=== PATIENT | male | born 1935 | race Caucasian/White ===

== ENCOUNTER 2017-02-20 20:10 | Emergency (ER) | payer MEDICARE ==
[2017-02-20] MEDS ORDERED: Sodium Chloride 0.9% 1000 ML 1,000 ML ONE ×2 (20:41→22:34)
--- NOTE | 2017-02-20 20:44 | ERPHSYRPT ---
- History of Present Illness Time Seen by Provider: 02/20/17 20:39 Source: patient Physician History: This is a 82-year-old white male with history of cataracts, coronary artery disease, hyperlipidemia, high blood pressure, colorectal cancer. Patient arrives with complaint of feeling weak states he feels like he wants to follow better when he stands up symptoms since yesterday worse today which has been going on all day long. Patient states he is chronically weak in his legs however it is worse today he states he is vomited one time today no fevers he denies any chest pain shortness of breath abdominal pain. Past medical history includes cataracts, coronary artery disease, hyperlipidemia , high blood pressure, arthritis, colorectal cancer, anxiety, bladder polyps, left fibular fracture, gout, Past surgical history includes colon resection, CABG, aortic valve replacement, joint replacement, Timing/Duration: yesterday (symptoms since yesterday worse toda) Severity: moderate Modifying Factors: Improves With: nothing Associated Symptoms: nausea, vomiting (vomited time 1), malaise, weakness, No abdominal pain, No shortness of breath, No heartburn, No diaphoresis, No cough, No chills, No chest pain, No fever, No headaches, No loss of appetite, No rash, No syncope, No seizure Allergies/Adverse Reactions: No Known Drug Allergies Allergy (Verified 02/20/17 20:44) Home Medications: Allopurinol 100 mg [Zyloprim 100 mg] 100 mg PO DAILY 11/13/14 [History] Fluoxetine HCl [Prozac] 20 mg PO DAILY 11/13/14 [History] Metoprolol Succinate 50 mg [Toprol Xl 50 MG] 50 mg PO DAILY 11/13/14 [ History] Simvastatin [Zocor] 10 mg PO HS 11/13/14 [History] Melatonin 9 mg DAILY 03/03/15 [History] Pantoprazole Sodium [Protonix] 40 mg DAILY 03/03/15 [History] Trazodone HCl 50 mg [Desyrel 50 mg] 25 mg HS 03/03/15 [History] Inulin/Chromium Picolinate [Fiber Gummies] 3 each PO BID 04/20/15 [History] Loperamide HCl [Loperamide] 2 mg PO DAILY 04/20/15 [History] Sodium Chloride [Saline Nasal Mist] 2 drops QID 04/20/15 [History] Warfarin Sodium [Coumadin] 6 mg PO DAILY 04/20/15 [History] Alfuzosin HCl [Alfuzosin HCl ER] 10 mg PO DAILY 02/20/17 [History] Furosemide [Lasix] 20 mg PO DAILY 02/20/17 [History] Gabapentin 100 mg PO BID 02/20/17 [History] Lisinopril 5 mg [Zestril 5 MG] 5 mg PO DAILY 02/20/17 [History] Potassium Chloride 10 meq PO BID 02/20/17 [History] Hx Tetanus, Diphtheria Vaccination/Date Given: No Hx Influenza Vaccination/Date Given: Yes Hx Pneumococcal Vaccination/Date Given: Yes - Review of Systems Constitutional: Weakness, No Fever, No Chills Eyes: No Symptoms Ears, Nose, & Throat: No Symptoms Respiratory: No Cough, No Dyspnea Cardiac: No Chest Pain, No Edema, No Syncope Abdominal/Gastrointestinal: Nausea, Vomiting, No Abdominal Pain, No Diarrhea, No Constipation, No Hematemesis, No Hematochezia, No Melena, No Dysphagia, No Appetite Changes Genitourinary Symptoms: No Dysuria Musculoskeletal: No Back Pain, No Neck Pain Skin: No Rash Neurological: Other (difficulty standingbilateral leg weakness moves all extremities), No Dizziness, No Focal Weakness, No Sensory Changes Psychological: No Symptoms Endocrine: No Symptoms All Other Systems: Reviewed and Negative - Past Medical History Pertinent Past Medical History: Yes Neurological History: Stroke ENT History: Cataracts Cardiac History: Coronary Artery Disease, High Cholesterol, Hypertension Respiratory History: No Pertinent History Endocrine Medical History: No Pertinent History Musculoskeletal History: Arthritis GI Medical History: Colorectal Cancer History: No Pertinent History Psycho-Social History: Anxiety Male Reproductive Disorders: No Pertinent History Other Medical History: afib, bladder polyps, lower left fibula fx,gout, - Past Surgical History Past Surgical History: Yes Neuro Surgical History: No Pertinent History Cardiac: CABG, Valve Replacement Respiratory: No Pertinent History Gastrointestinal: No Pertinent History Genitourinary: No Pertinent History Musculoskeletal: Joint Replacement Male Surgical History: No Pertinent History Other Surgical History: Pt states heart valve replacement noted - Social History Smoking Status: Never smoker How long have you smoked: 20 Exposure to second hand smoke: No Drug Use: none Patient Lives Alone: No (nursing) - Nursing Vital Signs Nursing Vital Signs: Initial Vital Signs Temperature 97.8 F 02/20/17 20:11 Pulse Rate 68 02/20/17 20:11 Respiratory Rate 16 02/20/17 20:11 Blood Pressure 129/49 02/20/17 20:11 O2 Sat by Pulse Oximetry 99 02/20/17 20:11 Pain Scale Pain Intensity 0 - Physical Exam General Appearance: no apparent distress, alert Eye Exam: PERRL/EOMI, eyes nml inspection Ears, Nose, Throat Exam: normal ENT inspection, TMs normal, pharynx normal, moist mucous membranes Neck Exam: normal inspection, non-tender, supple, full range of motion Respiratory Exam: normal breath sounds, lungs clear, No respiratory distress Cardiovascular Exam: regular rate/rhythm, normal heart sounds, normal peripheral pulses Gastrointestinal/Abdomen Exam: soft, normal bowel sounds, hernia (ventral hernianontender), No tenderness Back Exam: normal inspection, normal range of motion, No CVA tenderness, No vertebral tenderness Extremity Exam: normal inspection, normal range of motion, pelvis stable Neurologic Exam: alert, oriented x 3, cooperative, normal mood/affect, nml cerebellar function, nml station & gait, sensation nml, No motor deficits Skin Exam: normal color Lymphatic Exam: No adenopathy SpO2 Interpretation: normal (99%) - Course Nursing assessment & vital signs reviewed: Yes EKG Interpreted by Me: RATE (73 bpm), Sinus Rhythm, Left [place] Deviation, Right Bundle Branch Block, Other (EKG: Sinus rhythm, 73 beats per minute, left axis deviation, complete right bundle branch block, no acute ST or T wave changes compared to April 20, 2015) - Radiology Exams Chest X-ray Interpretation: Interpreted by me, Other (no acute disease process) - CT Exams Head CT Interpretation: Tele-radiologist Report (head CT: Impression 1. Atrophy and small vessel ischemic changes. Bilateral lacunar infarcts which are likely old although white matter changes/small ischemic change could potentially obscure for acute abnormality. MRI might be helpful for further evaluation if clinically indicated. No midline shift, no hemorrhage) Ordered Tests: Active Orders 24 hr Category Date Time Status EKG-ER Only STAT Care 02/20/17 20:36 Active IV Insertion STAT Care 02/20/17 20:36 Active cath [Cath for Specimen-Straight] STAT Care 02/20/17 21:58 Active CHEST 1 VIEW (PORTABLE) Stat Exams 02/20/17 20:37 Taken HEAD WITHOUT CONTRAST [CT] Stat Exams 02/20/17 20:38 Taken AMYLASE Stat Lab 02/20/17 20:35 Completed CBC W DIFF Stat Lab 02/20/17 20:35 Completed CMP Stat Lab 02/20/17 20:35 Completed CULTURE,URINE Stat Lab 02/20/17 22:00 Received LIPASE Stat Lab 02/20/17 20:35 Completed PROTIME WITH INR Stat Lab 02/20/17 20:35 Completed PTT Stat Lab 02/20/17 20:35 Completed TROPONIN Q3H Lab 02/20/17 20:35 Completed TROPONIN Q3H Lab 02/20/17 23:45 Ordered TROPONIN Q3H Lab 02/21/17 02:45 Ordered TROPONIN Q3H Lab 02/21/17 05:45 Ordered TROPONIN Q3H Lab 02/21/17 08:45 Ordered UA W/ MICROSCOPIC Stat Lab 02/20/17 22:00 Completed Medication Summary Generic Name Dose Route Start Last Admin Trade Name Freq PRN Reason Stop Dose Admin Sodium Chloride 1,000 mls @ 100 mls/hr 02/20/17 20:45 02/20/17 20:44 Sodium Chloride 0.9% 1000 Ml IV 03/22/17 20:44 100 mls/hr .Q10H YENI Administration Sodium Chloride 1,000 mls @ 999 mls/hr 02/20/17 22:26 02/20/17 22:37 Sodium Chloride 0.9% 1000 Ml IV 02/20/17 23:26 999 mls/hr .Q1H1M STA Administration Discontinued Medications Generic Name Dose Route Start Last Admin Trade Name Freq PRN Reason Stop Dose Admin Lidocaine HCl 200 mg 02/20/17 21:47 02/20/17 21:48 Xylocaine 2% Uro-Jet TOP 02/20/17 21:48 200 mg STAT ONE Administration Lidocaine HCl Confirm 02/20/17 21:46 Xylocaine 2% Uro-Jet Administered 02/20/17 21:47 Dose 200 mg .ROUTE .STK-MED ONE Lab/Rad Data: Laboratory Result Diagrams 02/20/17 20:35 02/20/17 20:35 Laboratory Results 02/20/17 02/20/17 02/20/17 Range/Units 22:00 20:35 20:35 WBC (4.0-10.5) K/mm3 RBC (4.1-5.6) M/mm3 Hgb (12.5-18.0) gm/dl Hct (42-50) % MCV (78-100) fl MCH (26-32) pg MCHC (32-36) g/dl RDW (11.5-14.0) % Plt Count (150-450) K/mm3 MPV (6-9.5) fl Gran % (36.0-66.0) % Lymphocytes % (24.0-44.0) % Monocytes % (0.0-12.0) % Eosinophils % (0.00-5.0) % Basophils % (0.0-0.4) % Basophils # (0-0.4) INR 4.83 H (0.8-3.0) APTT 54.5 H (24.1-36.1) SECONDS Sodium (136-145) mEq/L Potassium (3.5-5.1) mEq/L Chloride (98-107) mEq/L Carbon Dioxide (21-32) mEq/L Anion Gap (5-15) MEQ/L BUN (9-20) mg/dL Creatinine (0.55-1.30) mg/dl Estimated GFR ML/MIN Glucose (70-110) MG/DL Calcium (8.5-10.1) mg/dL Total Bilirubin (0.2-1.0) mg/dL AST (15-37) U/L ALT (12-78) U/L Alkaline Phosphatase (46-116) U/L Troponin I < 0.017 (0.000-0.056) ng/ml Serum Total Protein (6.4-8.2) gm/dL Albumin (3.4-5.0) g/dL Amylase (25-115) U/L Lipase (73-393) U/L Ur Collection Type CATH Urine Color YELLOW (YELLOW) Urine Appearance SLIGHTLY CLOUDY (CLEAR) Urine pH 5.0 (5-6) Ur Specific [place] 1.020 (1.005-1.025) Urine Protein 30 (Negative) Urine Ketones NEGATIVE (NEGATIVE) Urine Blood TRACE NON-HEM (0-5) Lele/ul Urine Nitrite NEGATIVE (NEGATIVE) Urine Bilirubin NEGATIVE (NEGATIVE) Urine Urobilinogen NORMAL (0-1) mg/dL Ur Leukocyte Esterase NEGATIVE (NEGATIVE) Urine Microscopic RBC 0-2 (0-2) /HPF Urine Microscopic WBC 2-5 (0-5) /HPF Ur Epithelial Cells RARE (FEW) /HPF Amorphous Crystals FEW (NEGATIVE) /HPF Urine Bacteria RARE (NEGATIVE) /HPF Hyaline Casts 0-2 (0-2) /LPF Urine Culture Reflexed YES (NO) Urine Glucose NEGATIVE (NEGATIVE) mg/dL Specimen Received 02/20/17 2200 02/20/17 02/20/17 Range/Units 20:35 20:35 WBC 8.3 (4.0-10.5) K/mm3 RBC 3.32 L (4.1-5.6) M/mm3 Hgb 10.3 L (12.5-18.0) gm/dl Hct 32.4 L (42-50) % MCV 97.6 (78-100) fl MCH 31.0 (26-32) pg MCHC 31.8 L (32-36) g/dl RDW 16.3 H (11.5-14.0) % Plt Count 237 (150-450) K/mm3 MPV 10.1 H (6-9.5) fl Gran % 70.9 H (36.0-66.0) % Lymphocytes % 20.8 L (24.0-44.0) % Monocytes % 6.8 (0.0-12.0) % Eosinophils % 1.4 (0.00-5.0) % Basophils % 0.1 (0.0-0.4) % Basophils # 0.01 (0-0.4) INR (0.8-3.0) APTT (24.1-36.1) SECONDS Sodium 137 (136-145) mEq/L Potassium 5.7 H (3.5-5.1) mEq/L Chloride 111 H (98-107) mEq/L Carbon Dioxide 11.7 L* (21-32) mEq/L Anion Gap 20.4 H (5-15) MEQ/L BUN 76 H (9-20) mg/dL Creatinine 7.99 H (0.55-1.30) mg/dl Estimated GFR 7 ML/MIN Glucose 99 (70-110) MG/DL Calcium 7.0 L (8.5-10.1) mg/dL Total Bilirubin 0.50 (0.2-1.0) mg/dL AST 10 L (15-37) U/L ALT 15 (12-78) U/L Alkaline Phosphatase 102 (46-116) U/L Troponin I (0.000-0.056) ng/ml Serum Total Protein 7.1 (6.4-8.2) gm/dL Albumin 3.4 (3.4-5.0) g/dL Amylase 105 (25-115) U/L Lipase 345 (73-393) U/L Ur Collection Type Urine Color (YELLOW) Urine Appearance (CLEAR) Urine pH (5-6) Ur Specific [place] (1.005-1.025) Urine Protein (Negative) Urine Ketones (NEGATIVE) Urine Blood (0-5) Lele/ul Urine Nitrite (NEGATIVE) Urine Bilirubin (NEGATIVE) Urine Urobilinogen (0-1) mg/dL Ur Leukocyte Esterase (NEGATIVE) Urine Microscopic RBC (0-2) /HPF Urine Microscopic WBC (0-5) /HPF Ur Epithelial Cells (FEW) /HPF Amorphous Crystals (NEGATIVE) /HPF Urine Bacteria (NEGATIVE) /HPF Hyaline Casts (0-2) /LPF Urine Culture Reflexed (NO) Urine Glucose (NEGATIVE) mg/dL Specimen Received - Progress Progress: improved Progress Note: 02/20/17 20:43 This 82-year-old white male with history of CVA cataracts, coronary artery disease, hyperlipidemia, high blood pressure, arthritis, colorectal cancer, who has had a valve replacement and CABG. Patient states that he is chronically weak in the legs however yesterday he began to feel off balance felt like he was having a hard time continuing the walk-in the store he had a hard time finding a place to sit down he managed to get home today he feels weak in the legs feels like when he stands up he might fall over this is been going on all day long. He denies any problems moving. He states he had one episode of vomiting today just prior to medics arrival. He denies any chest pain shortness of breath abdominal pain. He is not having any trouble speaking he has no sensory loss. Will go ahead and obtain CBC CMP EKG troponin UA, head CT chest x-ray. 02/20/17 22:38 Patient is noted to have a BUN of 76 and creatinine 7.99 potassium is 5.7 bicarbonate 11.7 sodium 137 chloride 111 EKG right bundle branch block [address] or T wave changes are noted troponin within normal limits CBC white count 8.3 hemoglobin 10.3 hematocrit 32.4 INR is elevated at 4.83 Patient was started on normal saline this was turned into a bolus after patient was noted to have decreased blood pressure after sitting up and pressure went down from 129/49-97/37 he was noted go to 87 sleeping currently 96/44 I discussed the patient's case with Dr. Hays at [facility] emergency room Patient does see Dr. Hu patient will need a renal referral on this patient Will transfer - Departure Time of Disposition: 22:40 Departure Disposition: Transfer ([facility] Dr. Hays) Clinical Impression: Weakness, Dehydration Renal failure Qualifiers: Renal failure chronicity: unspecified chronicity Qualified Code(s): N19 - Unspecified kidney failure Condition: Fair Critical Care Time: No Referrals: Provider,Unknown [Primary Care Provider] -
[2017-02-20] MEDS ORDERED: Sodium Chloride 0.9% 1000 ML 1,000 ML IV SCH (20:45)
[2017-02-20 20:52] LABS: BASOPHIL % 0.1 % (0.0-0.4); Eosinophil % 1.4 % (0.00-5.0); Granulocytes % 70.9 % (36.0-66.0); Lymphocytes % 20.8 % (24.0-44.0); Mean Cell Volume 97.6 fl (78-100); Mean Platelet Volume 10.1 fl (6-9.5); Monocytes % 6.8 % (0.0-12.0); Platelet Count 237 K/mm3 (150-450); Red Blood Count 3.32 M/mm3 (4.1-5.6); Red Cell Distribution Width 16.3 % (11.5-14.0); White Blood Count 8.3 K/mm3 (4.0-10.5)
[2017-02-20 21:04] LABS: INR 4.83 (0.8-3.0); PROTIME 54.6 SECONDS (8.83-12.87)
[2017-02-20 21:07] LABS: PTT 54.5 SECONDS (24.1-36.1)
[2017-02-20 21:13] LABS: ALBUMIN 3.4 g/dL (3.4-5.0); ANION GAP 20.4 MEQ/L (5-15); BILIRUBIN,TOTAL 0.5 mg/dL (0.2-1.0); Potassium 5.7 mEq/L (3.5-5.1); Total Protein 7.1 gm/dL (6.4-8.2)
[2017-02-20 21:14] LABS: Carbon Dioxide 11.7 mEq/L (21-32)
[2017-02-20] MEDS ORDERED: XYLOCAINE 2% Uro-Jet ONE (21:46)
[2017-02-20] MEDS ORDERED: XYLOCAINE 2% Uro-Jet TOP ONE (21:47)
[2017-02-20 22:10] LABS: Collection Type CATH
[2017-02-20 22:11] LABS: Bilirubin NEGATIVE (NEGATIVE); Blood TRACE NON-HEM Ery/ul (0-5); COMPLETE URINE MICROSCOPIC? YES; Glucose NEGATIVE (NEGATIVE); Leukocyte Esterase NEGATIVE (NEGATIVE)
[2017-02-20 22:23] LABS: Bacteria RARE /HPF (NEGATIVE); Epithelial Cells RARE /HPF (FEW); Hyaline Casts 0-2 /LPF (0-2)
[2017-02-20 22:24] LABS: ADD URINE CULTURE? YES (NO)
[2017-02-20] MEDS ORDERED: Sodium Chloride 0.9% 1000 ML 1,000 ML IV STA (22:26)
[2017-02-20 23:44] VITALS: BP 93/28; PULSE 70; O2SAT 96
--- NOTE | 2017-02-21 08:39 | XRAY ---
Indication: Progressive weakness. Comparison: December 16, 2015. Portable chest again demonstrates blunting of the right costophrenic angle. Remaining lungs clear. Heart is not enlarged and again demonstrates previous CABG surgery. Bony thorax intact again with mild osteopenia and degenerative changes. Impression: Stable right base pleural effusion/thickening. No new cardiopulmonary abnormalities.
--- NOTE | 2017-02-21 08:41 | XRAY ---
Indication: Progressive worsening weakness. Multiple contiguous axial images obtained through the head without contrast. Comparison: May 06, 2015. Stable age-appropriate global atrophy and mild periventricular degenerative micro-ischemia bilaterally. No acute intracranial hemorrhage, abnormal extra-axial fluid collection, or mass effect. Fourth ventricle is midline without hydrocephalus. Bony calvarium intact. Stable left sphenoid sinus polyp/retention cyst. Remaining paranasal sinuses and mastoid air cells clear. Impression: Stable nonacute senile brain with left sphenoid sinus polyp/retention cyst. Comment: Preliminary interpretation was made by [facility]. No discrepancy. CT DI 71.08
== END 2017-02-20 23:20 | disposition short-term general hospital (02) ==
LOC: ED 20:10
DX: N19 Unspecified kidney failure (principal); R53.1 Weakness; E86.0 Dehydration; R11.2 Nausea with vomiting, unspecified; Z79.899 Other long term (current) drug therapy; I25.10 Atherosclerotic heart disease of native coronary artery without angina pectoris; E78.00 Pure hypercholesterolemia, unspecified; I10 Essential (primary) hypertension
CPT/HCPCS: 99285; 36000; 96360; 96361; 93005; 82150; 81000; 85610; 85730; 83690; 85025; 80053; 84484; 87086; 71010; 70450; P9612; 36415